=== PATIENT | female | born 1965 ===

== ENCOUNTER 2017-11-17 15:27 | Emergency (ER) | payer MEDICAID, OTHER ==
[2017-11-17 15:30] VITALS: BMI 29.2
--- NOTE | 2017-11-17 16:57 | RAD ---
PROCEDURE: Left Ankle Radiographs. HISTORY: twisted ankle COMPARISON: None FINDINGS: BONES: Avulsion fracture of the lateral malleolar tip. JOINTS: Ankle mortise maintained. Talar dome intact SOFT TISSUES: Lateral malleolar soft tissue swelling. OTHER FINDINGS: None. IMPRESSION: Avulsion fracture of the lateral malleolar tip.
--- NOTE | 2017-11-17 18:07 | C.PDOC ---
History Of Present Illness 52-year-old female, presents to the emergency department with complaints of pain to her ankle. Patient states she tripped and fell this morning, sustaining an inversion injury to her left ankle. Patient went to [facility], who referred her to ED for XR and further evaluation. Patient denies numbness/ weakness, nausea/vomiting, or any other associated symptoms. No other complaints at this time. Chief Complaint (Nursing): Lower Extremity Problem/Injury History Per: Patient History/Exam Limitations: no limitations Past Medical History Reviewed: Historical Data, Nursing Documentation, Vital Signs Vital Signs: Last Vital Signs Temp 98.2 F 11/17/17 18:16 Pulse 67 11/17/17 18:16 Resp 18 11/17/17 18:16 BP 136/81 11/17/17 18:16 Pulse Ox 100 11/17/17 19:34 - Medical History PMH: Diabetes, HTN, Hypercholesterolemia, Hypothyroidism Denies: Chronic Kidney Disease - [facility] Procedures INJECT/INFUSE NEC (12/23/12) RESECTION OF BILATERAL FALLOPIAN TUBES, OPEN APPROACH (09/25/15) RESECTION OF BILATERAL OVARIES, OPEN APPROACH (09/25/15) RESECTION OF CERVIX, OPEN APPROACH (09/25/15) RESECTION OF UTERUS, OPEN APPROACH (09/25/15) Family History: States: Hypertension - Social History Hx Alcohol Use: No Hx Substance Use: No Review Of Systems Except As Marked, All Systems Reviewed And Found Negative. Constitutional: Negative for: Fever, Chills Gastrointestinal: Negative for: Nausea, Vomiting Musculoskeletal: Positive for: Other (left ankle pain) Neurological: Negative for: Weakness, Numbness Physical Exam - Physical Exam Appears: Non-toxic, No Acute Distress Skin: Normal Color, Warm, Dry, No Rash Head: Atraumatic Eye(s): bilateral: Normal Inspection Nose: Normal Oral Mucosa: Moist Lips: Normal Appearing Neck: Normal ROM Respiratory: No Accessory Muscle Use Extremity: Tenderness (and swelling to left lateral malleolus), No Deformity Pulses: Left Dorsalis Pedis: Normal, Right Dorsalis Pedis: Normal Neurological/Psych: Oriented x3, Normal Speech ED Course And Treatment O2 Sat by Pulse Oximetry: 100 (RA) Pulse Ox Interpretation: Normal - Other Rad XR ANKLE X-Ray: Viewed By Me, Read By Radiologist Interpretation: Accession No. : [id number]. Patient Name / ID : KAVYA BROCK / [id number]. Exam Date : 11/17/2017 16:44:32 ( Approved ). Study Comment : Sex / Age : F / 52Y. Creator : Walter Villalobos MD. Dictator : Walter Villalobos MD. Archives Technician : Wood Floor Layer : Walter Villalobos MD. Approver2 : Report Date : 11/17/2017 16:55:45. My Comment : . PROCEDURE: Left Ankle Radiographs. HISTORY: twisted ankle. COMPARISON: None. FINDINGS: BONES: Avulsion fracture of the lateral malleolar tip. JOINTS: Ankle mortise maintained. Talar dome intact. SOFT TISSUES: Lateral malleolar soft tissue swelling. OTHER FINDINGS: None. IMPRESSION: Avulsion fracture of the lateral malleolar tip. Progress Note: Short leg splint was applied by CP and checked by me. Crutches and crutch walking instructions wre provided by CP. patient was instructed to follow up with Orthopedist. Disposition - Disposition Referrals: Roldan Paniagua III, MD [Staff Provider] - Disposition: HOME/ ROUTINE Disposition Time: 18:07 Condition: STABLE Additional Instructions: Follow up with Orthopedist within 2-3 days. Return to ED if feel worse. Prescriptions: Ibuprofen [Motrin Tab] 600 mg PO Q8 #30 tab Instructions: Ankle Fracture (DC) Forms: [employer] ([place]) - Clinical Impression Clinical Impression: Ankle fracture - Scribe Statement The provider has reviewed the documentation as recorded by the Scribe (Khang Rubio) All medical record entries made by the Scribe were at my direction and personally dictated by me. I have reviewed the chart and agree that the record accurately reflects my personal performance of the history, physical exam, medical decision making, and the department course for this patient. I have also personally directed, reviewed, and agree with the discharge instructions and disposition.
[2017-11-17 18:17] VITALS: BP 136/81; PULSE 67; RESP 18; TEMP 98.2
[2017-11-17 19:04] VITALS: O2SAT 100
== END 2017-11-17 18:24 | disposition home or self-care (01) ==
LOC: C.ER 15:27
DX: S82.62XA Displaced fracture of lateral malleolus of left fibula, initial encounter for closed fracture (principal); W01.0XXA Fall on same level from slipping, tripping and stumbling without subsequent striking against object, initial encounter; Y92.9 Unspecified place or not applicable